=== PATIENT | male | born 1985 | race Caucasian/White ===

== ENCOUNTER 2019-01-04 17:34 | Emergency (ER) | payer SELFPAY ==
[~2019-01-04] VITALS: Ht 177.8 cm; Wt 73.9 kg
[2019-01-04 17:38] VITALS: Ht 177.8 cm; Wt 73.9 kg
[2019-01-04 18:53] VITALS: BP 134/88
== END 2019-01-04 18:53 | disposition home or self-care (01) ==
LOC: ED 17:34
DX: B35.6 Tinea cruris (principal)
CPT/HCPCS: 87491; 87591; J0696